=== PATIENT | female | born 1975 | race Caucasian/White ===

== ENCOUNTER 2017-03-03 11:58 | Inpatient (IN) | payer BC ==
[2017-03-03 12:44] LABS: ADD MAN DIFF? NO
[2017-03-03 12:49] LABS: BASO % 0 % (0-3); EOS # 0.1 x10^3/uL (0.0-0.7); EOS % 1 % (0-3); HEMATOCRIT 38.3 % (36.0-47.0); HEMOGLOBIN 12.7 g/dL (12.0-15.5); LYMPH # 1.9 x10^3/uL (1.0-4.8); LYMPH % 23 % (24-48); MEAN CORPUSCULAR HEMOGLOBIN 29 pg (25-35); MEAN CORPUSCULAR HGB CONC 33 g/dL (31-37); MEAN CORPUSCULAR VOLUME 88 fL (79-100); MONO # 0.5 x10^3/uL (0.0-1.1); MONO % 6 % (0-9); NEUT # 5.6 x10^3uL (1.8-7.7); NEUT % 70 % (31-73); PLATELET COUNT 248 x10^3/uL (140-400); RED BLOOD COUNT 4.38 x10^6/uL (3.50-5.40); RED CELL DISTRIBUTION WIDTH 13.7 % (11.5-14.5)
[2017-03-03 12:59] LABS: ANION GAP 11 (6-14); BLOOD UREA NITROGEN 8 mg/dL (7-20); BUN/CREATININE RATIO 11 (6-20); CALCIUM 9.3 mg/dL (8.5-10.1); CARBON DIOXIDE 28 mmol/L (21-32); CHLORIDE 99 mmol/L (98-107); CREATININE 0.7 mg/dL (0.6-1.0); GFR 92.2; GLUCOSE 179 mg/dL (70-99); POTASSIUM 3.8 mmol/L (3.5-5.1); SODIUM 138 mmol/L (136-145)
[2017-03-03 13:06] LABS: ALBUMIN 3.3 g/dL (3.4-5.0); ALBUMIN/GLOBULIN RATIO 0.8 (1.0-1.7); ALK PHOS 80 U/L (46-116); ALT (SGPT) 17 U/L (14-59); AST (SGOT) 10 U/L (15-37); TOTAL BILIRUBIN 0.3 mg/dL (0.2-1.0); TOTAL PROTEIN 7.4 g/dL (6.4-8.2)
[2017-03-03 13:07] LABS: TROPONINI 0.022 ng/mL (0.000-0.055)
[2017-03-03 13:35] LABS: D-DIMER < 0.27 ug/mlFEU (0.00-0.50)
[2017-03-03] MEDS ORDERED: PROCHLORPERAZINE 10 MG/2 ML VIAL. IV (14:15)
[2017-03-03] MEDS ORDERED: MAGNESIUM HYDROXIDE 2,400 MG/30 ML ORAL.SUSP. PO (14:15)
[2017-03-03] MEDS ORDERED: ACETAMINOPHEN 325 MG TABLET. PO (14:15)
[2017-03-03] MEDS ORDERED: oxyCODONE IR 5 MG TABLET PO (14:15)
[2017-03-03] MEDS ORDERED: LACTULOSE 20 GM/30 ML SOLUTION. PO (14:15)
[2017-03-03] MEDS ORDERED: PROCHLORPERAZINE 25 MG SUPP.RECT. PR (14:15)
[2017-03-03] MEDS ORDERED: IBUPROFEN 400 MG TABLET. PO (14:15)
[2017-03-03] MEDS ORDERED: ZOLPIDEM 5 MG TABLET. PO (14:15)
[2017-03-03] MEDS ORDERED: CALCIUM CARBONATE 500 MG TAB.CHEW PO (14:15)
[2017-03-03] MEDS ORDERED: MAG HYDROX/ALUMINUM HYD/SIMETH 30 ML ORAL.SUSP PO (14:15)
[2017-03-03] MEDS ORDERED: MORPHINE SULFATE 2 MG/ML DISP.SYRIN. IV ×2 (14:15→14:30)
[2017-03-03] MEDS ORDERED: ONDANSETRON PF 4 MG/2 ML VIAL. IV ×2 (14:15→14:30)
[2017-03-03] MEDS: ASPIRIN CHEWABLE 81 MG TABLET. PO (14:37)
[2017-03-03 15:13] LABS: THYROID STIM HORMONE (TSH) 0.845 uIU/mL (0.358-3.74)
[2017-03-03] MEDS: PANTOPRAZOLE 40 MG TABLET.DR. PO (15:15)
[2017-03-03] MEDS: LIDO:MAALOX:DONNATAL 1:1:1 15 ML SINGLE DOSE SWSW ×2 (15:18→15:30)
[2017-03-03] MEDS: DULoxetine HCL 30 MG CAPSULE.DR PO (20:39)
[2017-03-04 06:12] LABS: CHOLESTEROL 212 mg/dL (0-200); HDLC 47 mg/dL (40-60); LDLC 112 mg/dL (0-100); NON-HDL CHOLESTEROL 165 mg/dL (0-129); TRIGLYCERIDES 264 mg/dL (0-150); VLDLC 53 mg/dL (0-40)
[2017-03-04 06:15] LABS: CHOLESTEROL/HDL RATIO 4.5; HEMOGLOBIN A1C 5.8 % (4.8-5.6)
[2017-03-04 06:56] LABS: TROPONINI 0.022 ng/mL (0.000-0.055)
[2017-03-04] MEDS: PANTOPRAZOLE 40 MG TABLET.DR. PO (08:44)
[2017-03-04] MEDS: LISINOPRIL 10 MG TABLET PO (08:44)
[2017-03-04] MEDS: hydroCHLOROthiazide 12.5 MG CAPSULE PO (08:44)
[2017-03-04] MEDS: DULoxetine HCL 30 MG CAPSULE.DR PO (08:44)
== END 2017-03-04 14:15 | disposition home or self-care (01) | DRG 313 ==
LOC: ER 11:58 → 2 SOUTH 14:06
DX: R07.89 Other chest pain (principal); I11.9 Hypertensive heart disease without heart failure; E11.65 Type 2 diabetes mellitus with hyperglycemia; R53.83 Other fatigue; K21.9 Gastro-esophageal reflux disease without esophagitis; M79.7 Fibromyalgia; F48.8 Other specified nonpsychotic mental disorders; F41.9 Anxiety disorder, unspecified; E66.01 Morbid (severe) obesity due to excess calories; Z90.49 Acquired absence of other specified parts of digestive tract; Z90.710 Acquired absence of both cervix and uterus; Z3A.49 Greater than 42 weeks gestation of pregnancy; Z82.49 Family history of ischemic heart disease and other diseases of the circulatory system
CPT/HCPCS: 36415; 71045; 80053; 80061; 83036; 84443; 84484; 85025; 85379; 93005; 93306; 99285; 99285-25